=== PATIENT | female | born 1975 | race Caucasian/White ===

== ENCOUNTER 2019-10-04 05:22 | Emergency (ER) | payer OTHER ==
[~2019-10-04] VITALS: Ht 165.1 cm; Wt 70.3 kg
[~2019-10-04 05:22] MED LIST: ACYCLOVIR 400400 MG; KENALOG60 GM TOP; PREDNISONE 20 M20 M1 PO
[2019-10-04 05:38] VITALS: BP 121/67
[2019-10-04] MEDS ORDERED: AMOXICILLIN875 MG PO (06:25)
[2019-10-04] MEDS ORDERED: MEDROLDOSEPACK PO (06:39)
== END 2019-10-04 06:30 | disposition home or self-care (01) ==
LOC: M.ERS 05:22
DX: J98.8 Other specified respiratory disorders (principal); F17.210 Nicotine dependence, cigarettes, uncomplicated; Z88.5 Allergy status to narcotic agent; Z98.51 Tubal ligation status; R10.11 Right upper quadrant pain; R10.32 Left lower quadrant pain